=== PATIENT | female | born 1980 | race Caucasian/White ===

== ENCOUNTER 2020-03-31 11:14 | Emergency (ER) | payer MEDICARE, BC ==
[2020-03-31] MEDS ORDERED: LAMOTRIGINE100 MG PO (11:43)
[2020-03-31] MEDS ORDERED: PREGABALIN300 MG PO (11:43)
[2020-03-31] MEDS ORDERED: CARISOPRODOL350 M1 PO (11:43)
[2020-03-31] MEDS ORDERED: PROMETHAZINE12.5 M3 PO (11:44)
[2020-03-31] MEDS ORDERED: TRAZODONE100 MG PO (11:45)
[2020-03-31] MEDS ORDERED: REXULTI1 MG PO (11:45)
[2020-03-31] MEDS ORDERED: VENLAFAXINE HYD75 MG PO (11:46)
[2020-03-31] MEDS ORDERED: PROTONIX TR40 M1 PO (11:46)
[2020-03-31 11:50] LABS: BASO # 0.1 10*3/uL (0.0-0.1); BASO % 0.5 % (0.0-1.0); EOS # 0.1 10*3/uL (0.0-0.4); HEMATOCRIT 42.8 % (37.0-47.0); LYMPH # 1.2 10*3/uL (1.3-4.4); LYMPH % 11.9 % (27.0-41.0); MEAN CELL VOLUME 94.5 fl (81.0-99.0); MEAN CORPUSCULAR HGB CONC 33.9 g/dl (33.0-37.0); MEAN PLATELET VOLUME 9.8 fl (9.6-12.3); MONO # 1.2 10*3/uL (0.1-1.0); MONO % 11.4 % (3.0-9.0); NEUT # 7.6 10*3/uL (2.3-7.9); NEUT % 74.9 % (47.0-73.0); PLATELET COUNT AUTOMATED 231 10*3/uL (130-400); RED BLOOD COUNT 4.53 10*6/uL (4.10-5.10); RED CELL DISTRI WIDTH 13.3 % (0-14.5); WHITE BLOOD COUNT 10.2 10*3/uL (4.8-10.8)
[2020-03-31 11:56] LABS: COLOR YELLOW (YELLOW)
[2020-03-31 11:57] LABS: BILIRUBIN NEGATIVE (NEGATIVE); BLOOD 1+ (NEGATIVE); CLARITY CLOUDY (CLEAR); GLUCOSE NEGATIVE (NEGATIVE); KETONE 1+ (NEGATIVE); LEUKO ESTERASE 2+ (NEGATIVE); NITRITE POSITIVE (NEGATIVE); UROBILINOGEN 0.2 E.U./dl (0.2-1.0)
[2020-03-31 12:03] LABS: BACTERIA 1+; WBC TNTC wbc/hpf (0-5)
[2020-03-31 12:04] LABS: ALBUMIN 3.6 gm/dl (3.1-4.5); ALKALINE PHOSPHATASE 103 U/L (45-117); BUN 5 mg/dl (7-24); CHLORIDE 104 mmol/L (98-107); CREATININE 0.72 mg/dL (0.55-1.02); POTASSIUM 3.3 mmol/L (3.5-5.1); SGOT/AST 18 IU/L (3-35); SGPT/ALT 28 U/L (12-78); SODIUM 134 mmol/L (136-145); TOTAL PROTEIN 7.7 gm/dL (6.4-8.2)
[2020-03-31] MEDS ORDERED: SEPTDS PO (12:56)
[2020-03-31] MEDS ORDERED: PYRIDIUM100 MG PO (12:56)
== END 2020-03-31 13:11 | disposition home or self-care (01) ==
LOC: ED 11:14
PROVIDERS: Nurse Practitioner Family
DX: N39.0 Urinary tract infection, site not specified (principal); E87.6 Hypokalemia; Z88.8 Allergy status to other drugs, medicaments and biological substances; Z79.899 Other long term (current) drug therapy

== ENCOUNTER 2020-05-31 11:33 | Emergency (ER) | payer MEDICARE, BC ==
[~2020-05-31] VITALS: Ht 157.4 cm; Wt 79.4 kg
[~2020-05-31 11:33] MED LIST: CARISOPRODOL350 M1 PO; LAMOTRIGINE100 MG PO; PREGABALIN300 MG PO; PROMETHAZINE12.5 M3 PO; PROTONIX TR40 M1 PO; PYRIDIUM100 MG PO; REXULTI1 MG PO; SEPTDS PO; TRAZODONE100 MG PO; VENLAFAXINE HYD75 MG PO
[2020-05-31] MEDS ORDERED: PREDNISONE50 MG PO (14:03)
[2020-05-31] MEDS ORDERED: AUGMENTIN 875875 MG PO (14:03)
== END 2020-05-31 14:22 | disposition home or self-care (01) ==
LOC: ED 11:33
DX: M25.512 Pain in left shoulder (principal); J40 Bronchitis, not specified as acute or chronic; F41.9 Anxiety disorder, unspecified; K21.9 Gastro-esophageal reflux disease without esophagitis; F31.9 Bipolar disorder, unspecified; F17.200 Nicotine dependence, unspecified, uncomplicated; Z79.899 Other long term (current) drug therapy; Z88.2 Allergy status to sulfonamides; Z88.8 Allergy status to other drugs, medicaments and biological substances